=== PATIENT | female | born 1940 | race Caucasian/White ===

== ENCOUNTER 2020-10-29 12:39 | Outpatient (CLI) | payer OTHER, SELFPAY ==
--- NOTE | ~2020-10-29 | US_ITS ---
EXAMINATION: US venous doppler LE RT DATE: 10/29/2020 13:18 INDICATION: Right lower limb pain and swelling TECHNIQUE: Grayscale ultrasound images without and with compression and Doppler ultrasound images of the right lower extremity veins were obtained. COMPARISON: None. FINDINGS: The visualized portions of right common femoral vein, profunda (deep) femoral vein, femoral vein, pop liteal vein, posterior tibial veins, gastrocnemius vein and greater saphenous vein outflow are patent . 3.4 x 2.3 x 1.1 cm anechoic Bond's cyst at the right popliteal fossa. IMPRESSION: 1. No deep venous thrombosis in the right lower limb. 2. Small Bond's cyst at the right popliteal fossa. Reviewed, dictated and finalized at location A.
== END 2020-10-29 12:40 | disposition home or self-care (01) ==
PROVIDERS: PCP Student in an Organized Health Care Education/Training Program; Visit Provider Student in an Organized Health Care Education/Training Program
DX: M79.604 Pain in right leg (principal); M79.89 Other specified soft tissue disorders; M71.21 Synovial cyst of popliteal space [Baker], right knee
CPT/HCPCS: 93971

== ENCOUNTER 2022-03-16 14:53 | Outpatient (CLI) | payer OTHER, SELFPAY ==
[2022-03-16 17:02] LABS: SARS-CoV-2 RNA PCR Negative
== END 2022-03-16 14:54 | disposition home or self-care (01) ==
LOC: ANHLAB 14:56
PROVIDERS: PCP Student in an Organized Health Care Education/Training Program; Visit Provider Student in an Organized Health Care Education/Training Program
DX: Z78.9 Other specified health status (principal); Z20.822 Contact with and (suspected) exposure to COVID-19
CPT/HCPCS: U0003; U0005